=== PATIENT | male | born 1935 | race Caucasian/White ===

== ENCOUNTER 2018-01-13 06:58 | Day surgery (SDC) | payer MEDICARE, BC ==
[~2018-01-13] VITALS: Ht 170.2 cm; Wt 82.1 kg
[~2018-01-13 06:58] MED LIST: ASPI-611 PO; CALC667T5 PO; CARV-50 PO; FOLI0.8T7 PO; FURO80TA87 PO; INSU100I31 SQ; LEVO25TA2 PO; LIOT25TA8 PO; LOSA25TA96 PO; OXYGEN; PANT40SU2 PO; TRAZ-219 PO; ZAR2.5T PO
[2018-01-13 07:28] VITALS: BP 153/77
[2018-01-13] MEDS ORDERED: normal saline 1000ml 1,000 ML IV SCH (07:35)
[2018-01-13 08:20] LABS: BASOPHILS % (AUTO) 0.4 % (0-1); EOSINOPHILS # (AUTO) 0.4 X10'3 (0-0.9); EOSINOPHILS % (AUTO) 3.9 % (0-6); LYMPHOCYTES # (AUTO) 1.2 X10'3 (1.1-4.8); MEAN CORPUSCULAR HGB CONC 33.4 % (33.0-36.5); MEAN CORPUSCULAR VOLUME 89.8 FL (78-98); MEAN PLATELET VOLUME 6.9 FL (7.4-10.4); MONOCYTES # (AUTO) 0.9 X10'3 (0-0.9); MONOCYTES % (AUTO) 9.4 % (2-12); NEUTROPHILS # (AUTO) 7.2 X10'3 (1.8-7.7); NEUTROPHILS % (AUTO) 74.3 % (42-75); PRE OP HEMOGLOBIN 11.4 g/dL (14.0-17.9); PRE OP PLATELET COUNT 295 X10'3 (140-440); RED BLOOD COUNT 3.78 X10'6 (4.70-6.10); RED CELL DISTRIBUTION WIDTH 15.1 % (11.5-14.5)
[2018-01-13] MEDS ORDERED: fentaNYL/PF 50MCG/1 ML 2ML syringe IV PRN (08:20)
[2018-01-13] MEDS ORDERED: LIDOcaine 1%/PF 5ML 10 MG/ML VIAL SQ ONE (08:20)
[2018-01-13] MEDS ORDERED: midazolam 2 mg/2 ml injection IV PRN (08:20)
[2018-01-13] MEDS ORDERED: heparin 1,000 UNITS/NS 500ml 500 ML ICATH ONE (08:20)
[2018-01-13 08:28] LABS: PROTHROMBIN TIME 10.2 SECONDS (9.0-12.0)
[2018-01-13 08:29] LABS: ALBUMIN 2.9 G/DL (3.4-5.0); ANION GAP 10 (8-16); BLOOD UREA NITROGEN 58 MG/DL (7-18); BUN/CREATININE RATIO 9.5 (5.4-32.0); CALCIUM 8.9 MG/DL (8.5-10.1); CHLORIDE 96 MMOL/L (99-107); CREATININE 6.09 MG/DL (0.60-1.10); GLUCOSE 118 MG/DL (70-104); POTASSIUM 3.9 MMOL/L (3.5-5.1); SODIUM 136 MMOL/L (135-145); TOTAL CARBON DIOXIDE 29.7 MMOL/L (24-32); eGFR 9 ML/MIN
[2018-01-13] MEDS ORDERED: iohexol 300mg/ml 100ml inj. ONE (08:31)
[2018-01-13] MEDS ORDERED: LIDOcaine 1%/PF 5ML 10 MG/ML VIAL ONE (08:31)
[2018-01-13] MEDS ORDERED: midazolam 2 mg/2 ml injection ONE (08:43)
[2018-01-13] MEDS ORDERED: fentaNYL/PF 50MCG/1 ML 2ML syringe ONE (08:43)
[2018-01-13] MEDS ORDERED: heparin 1,000 UNITS/NS 500ml 500 ML ONE (08:43)
[2018-01-13] MEDS ORDERED: iohexol 300 MG/1 ML 50ml polymer ONE (09:58)
[2018-01-13 10:35] VITALS: BP 134/82
[2018-01-13 10:50] VITALS: BP 136/76
[2018-01-13 11:05] VITALS: BP 131/72
[2018-01-13 11:20] VITALS: BP 152/76
[2018-01-13 11:50] VITALS: BP 137/74
== END 2018-01-13 12:00 | disposition home or self-care (01) ==
LOC: SSTAY O 06:58
PROVIDERS: ATTEND Radiology Diagnostic Radiology
DX: T82.858A Stenosis of other vascular prosthetic devices, implants and grafts, initial encounter (principal); Y83.2 Surgical operation with anastomosis, bypass or graft as the cause of abnormal reaction of the patient, or of later complication, without mention of misadventure at the time of the procedure; Y92.89 Other specified places as the place of occurrence of the external cause; E11.22 Type 2 diabetes mellitus with diabetic chronic kidney disease; I12.0 Hypertensive chronic kidney disease with stage 5 chronic kidney disease or end stage renal disease; N18.6 End stage renal disease; I25.810 Atherosclerosis of coronary artery bypass graft(s) without angina pectoris; G47.33 Obstructive sleep apnea (adult) (pediatric); I48.91 Unspecified atrial fibrillation; J45.998 Other asthma; Z88.6 Allergy status to analgesic agent; Z99.2 Dependence on renal dialysis; Z95.1 Presence of aortocoronary bypass graft; Z88.5 Allergy status to narcotic agent; Z88.1 Allergy status to other antibiotic agents; Z79.891 Long term (current) use of opiate analgesic; Z79.4 Long term (current) use of insulin; Z87.891 Personal history of nicotine dependence; Z87.11 Personal history of peptic ulcer disease; Z85.46 Personal history of malignant neoplasm of prostate; Z96.653 Presence of artificial knee joint, bilateral; Z98.41 Cataract extraction status, right eye; Z98.42 Cataract extraction status, left eye; Z85.828 Personal history of other malignant neoplasm of skin; Z92.21 Personal history of antineoplastic chemotherapy; Z79.899 Other long term (current) drug therapy; Z98.890 Other specified postprocedural states
CPT/HCPCS: 36415; 36902; 76937; 80048; 85025; 85610; 99152; 99153; C1725; C1769; C1894; J1644; J2001; J2250; J3010; J7030; Q9967; A4620

== ENCOUNTER 2018-04-20 06:28 | Day surgery (SDC) | payer MEDICARE, BC ==
[~2018-04-20] VITALS: Ht 172.7 cm; Wt 82.9 kg
[2018-04-20] VITALS (9 sets, daily range): BP systolic 130–150; BP diastolic 76–94
[~2018-04-20 06:28] MED LIST changes: -ASPI-611 PO
[2018-04-20] MEDS ORDERED: INDOMETHACIN PO (07:05)
[2018-04-20] MEDS ORDERED: normal saline 1000ml 1,000 ML IV SCH (07:40)
[2018-04-20 08:02] LABS: BASOPHILS % (AUTO) 0.2 % (0-1); EOSINOPHILS # (AUTO) 0.1 X10'3 (0-0.9); EOSINOPHILS % (AUTO) 1.2 % (0-6); HEMATOCRIT 39.5 % (42.0-52.0); HEMOGLOBIN 12.7 g/dl (14.0-17.9); LYMPHOCYTES % (AUTO) 10.1 % (21-51); MEAN CORPUSCULAR HEMOGLOBIN 29.1 PG (27.0-31.0); MEAN CORPUSCULAR HGB CONC 32.2 % (33.0-36.5); MEAN CORPUSCULAR VOLUME 90.5 FL (78-98); MEAN PLATELET VOLUME 7.6 FL (7.4-10.4); MONOCYTES # (AUTO) 0.3 X10'3 (0-0.9); MONOCYTES % (AUTO) 2.7 % (2-12); NEUTROPHILS # (AUTO) 8.7 X10'3 (1.8-7.7); NEUTROPHILS % (AUTO) 85.8 % (42-75); PLATELET COUNT 281 X10'3 (140-440); RED BLOOD COUNT 4.37 X10'6 (4.70-6.10); RED CELL DISTRIBUTION WIDTH 14.6 % (11.5-14.5); WHITE BLOOD COUNT 10.1 X10'3 (4.5-11.0)
[2018-04-20] MEDS ORDERED: iohexol 300mg/ml 100ml inj. ONE (08:24)
[2018-04-20] MEDS ORDERED: LIDOcaine 1%/PF 5ML 10 MG/ML VIAL ONE (08:24)
[2018-04-20] MEDS ORDERED: heparin 1,000 UNITS/NS 500ml 500 ML ICATH ONE ×2 (08:25→08:30)
[2018-04-20] MEDS ORDERED: midazolam 2 mg/2 ml injection IV PRN (08:25)
[2018-04-20] MEDS ORDERED: LIDOcaine 1%/PF 5ML 10 MG/ML VIAL SQ ONE (08:25)
[2018-04-20] MEDS ORDERED: fentaNYL/PF 50MCG/1 ML 2ML syringe IV PRN (08:25)
[2018-04-20] MEDS ORDERED: fentaNYL/PF 50MCG/1 ML 2ML syringe ONE ×2 (08:49→09:34)
[2018-04-20] MEDS ORDERED: heparin 1,000 UNITS/NS 500ml 500 ML ONE (08:49)
[2018-04-20] MEDS ORDERED: midazolam 2 mg/2 ml injection ONE ×2 (08:49→09:34)
== END 2018-04-20 13:30 | disposition home or self-care (01) ==
LOC: SSTAY O 06:28
PROVIDERS: ATTEND Radiology Diagnostic Radiology
DX: T82.858A Stenosis of other vascular prosthetic devices, implants and grafts, initial encounter (principal); Y83.2 Surgical operation with anastomosis, bypass or graft as the cause of abnormal reaction of the patient, or of later complication, without mention of misadventure at the time of the procedure; Y92.89 Other specified places as the place of occurrence of the external cause; I12.0 Hypertensive chronic kidney disease with stage 5 chronic kidney disease or end stage renal disease; E11.22 Type 2 diabetes mellitus with diabetic chronic kidney disease; N18.6 End stage renal disease; I25.810 Atherosclerosis of coronary artery bypass graft(s) without angina pectoris; I48.91 Unspecified atrial fibrillation; J45.998 Other asthma; H91.8X3 Other specified hearing loss, bilateral; Z87.891 Personal history of nicotine dependence; Z87.09 Personal history of other diseases of the respiratory system; Z87.11 Personal history of peptic ulcer disease; Z85.46 Personal history of malignant neoplasm of prostate; Z96.653 Presence of artificial knee joint, bilateral; Z98.41 Cataract extraction status, right eye; Z98.42 Cataract extraction status, left eye; Z85.828 Personal history of other malignant neoplasm of skin; Z95.1 Presence of aortocoronary bypass graft; Z99.2 Dependence on renal dialysis; Z88.5 Allergy status to narcotic agent; Z88.6 Allergy status to analgesic agent; Z88.1 Allergy status to other antibiotic agents; Z79.891 Long term (current) use of opiate analgesic; Z79.899 Other long term (current) drug therapy; Z98.890 Other specified postprocedural states
CPT/HCPCS: 36415; 36902; 76937; 82948; 85025; 99152; 99153; J1644; J2001; J2250; J3010; J7030; Q9967; C1725; C1769; C1894

== ENCOUNTER 2018-07-15 06:40 | Day surgery (SDC) | payer MEDICARE, BC ==
[~2018-07-15] VITALS: Ht 172.7 cm; Wt 84.9 kg
[2018-07-15] VITALS (7 sets, daily range): BP systolic 120–144; BP diastolic 72–95
[~2018-07-15 06:40] MED LIST changes: +INDOMETHACIN PO; -INSU100I31 SQ; -LIOT25TA8 PO
[2018-07-15] MEDS ORDERED: normal saline 1000ml 1,000 ML IV PRN (07:05)
[2018-07-15] MEDS ORDERED: INDO50CA14 PO (07:17)
[2018-07-15] MEDS ORDERED: INSU100I31 SQ (07:19)
[2018-07-15] MEDS ORDERED: midazolam 2 mg/2 ml injection IV PRN (08:45)
[2018-07-15] MEDS ORDERED: heparin 1,000 UNITS/NS 500ml 500 ML ICATH ONE (08:45)
[2018-07-15] MEDS ORDERED: fentaNYL/PF 50MCG/1 ML 2ML syringe IV PRN (08:45)
[2018-07-15] MEDS ORDERED: iohexol 300mg/ml 100ml inj. ONE (08:45)
[2018-07-15] MEDS ORDERED: normal saline 1000ml 1,000 ML IV SCH (08:45)
[2018-07-15] MEDS ORDERED: LIDOcaine 1%/PF 5ML 10 MG/ML VIAL ONE ×2 (08:45→08:50)
[2018-07-15] MEDS ORDERED: LIDOcaine 1%/PF 5ML 10 MG/ML VIAL SQ ONE (08:45)
[2018-07-15] MEDS ORDERED: fentaNYL/PF 50MCG/1 ML 2ML syringe ONE ×2 (08:50→09:31)
[2018-07-15] MEDS ORDERED: midazolam 2 mg/2 ml injection ONE (08:50)
[2018-07-15] MEDS ORDERED: heparin 1,000 UNITS/NS 500ml 500 ML ONE (08:50)
== END 2018-07-15 11:50 | disposition home or self-care (01) ==
LOC: SSTAY O 06:40
PROVIDERS: ATTEND Radiology Vascular & Interventional Radiology
DX: T82.898A Other specified complication of vascular prosthetic devices, implants and grafts, initial encounter (principal); I12.0 Hypertensive chronic kidney disease with stage 5 chronic kidney disease or end stage renal disease; N18.6 End stage renal disease; E03.9 Hypothyroidism, unspecified; Z96.653 Presence of artificial knee joint, bilateral; Z98.49 Cataract extraction status, unspecified eye; Y83.8 Other surgical procedures as the cause of abnormal reaction of the patient, or of later complication, without mention of misadventure at the time of the procedure; Z79.82 Long term (current) use of aspirin; Z79.899 Other long term (current) drug therapy; Z88.1 Allergy status to other antibiotic agents; Z88.8 Allergy status to other drugs, medicaments and biological substances
CPT/HCPCS: 36902; 99152; 99153; J1644; J2001; J2250; J3010; J7030; Q9967; C1725; C1769; C1894